=== PATIENT | male | born 1945 | race Caucasian/White ===

== ENCOUNTER → 2017-11-09 | Outpatient (CLI) | payer MEDICARE ==
[~2017-11-09] MED LIST: GADOBUTROL 10 MMOL/10 ML VIAL ONE
== END | disposition home or self-care (01) ==
LOC: CFH 12:59
PROVIDERS: ATTEND Nurse Practitioner Primary Care
DX: E03.9 Hypothyroidism, unspecified (principal); R97.20 Elevated prostate specific antigen [PSA]; R53.83 Other fatigue; M54.5 Low back pain; M25.511 Pain in right shoulder; R00.1 Bradycardia, unspecified; R07.89 Other chest pain; E55.9 Vitamin D deficiency, unspecified
CPT/HCPCS: 72197; 76536; A9585

== ENCOUNTER 2017-11-27 13:43 | Inpatient (IN) | payer MEDICARE ==
[~2017-11-27] VITALS: Ht 172.7 cm; Wt 73.8 kg
[2017-11-27] MEDS ORDERED: ASPIRIN 81 MG TABLET CHEW PO ONE (14:30)
[2017-11-27 14:42] LABS: BASOPHILS % (AUTO) 0 % (0-1); EOSINOPHILS % (AUTO) 2 % (1-7); LYMPHOCYTES # (AUTO) 0.99 x10^3/uL (1-3.4); LYMPHOCYTES % (AUTO) 18 % (22-44); MD NO; MEAN CORPUSCULAR HEMOGLOBIN 31.1 pg (27.5-34.5); MEAN CORPUSCULAR VOLUME 91.6 fL (81-97); MEAN PLATELET VOLUME 9.7 fL (7.4-10.4); MONOCYTES # (AUTO) 0.41 x10^3/uL (0.2-0.8); MONOCYTES % (AUTO) 8 % (2-9); NEUTROPHILS # (AUTO) 3.92 x10^3/uL (1.8-6.8); NEUTROPHILS % (AUTO) 72 % (42-75); PLATELET COUNT 193 x10^3/uL (130-400); RED BLOOD COUNT 4.95 x10^6/uL (4.38-5.82); RED CELL DISTRIBUTION WIDTH 12.8 % (9.4-14.8)
[2017-11-27 14:56] LABS: ALBUMIN 4.1 g/dL (3.4-5.0); ANION GAP 9 mmol/L (5-15); CALCIUM 9.1 mg/dL (8.5-10.1); CHLORIDE 103 mmol/L (98-107); CREATININE 1.13 mg/dL (0.7-1.3)
[2017-11-27 15:00] LABS: TROPONIN I < 0.015 ng/mL (0.000-0.045)
[2017-11-27] MEDS ORDERED: LEVO50TA PO (15:22)
[2017-11-27] MEDS ORDERED: ZOLPIDEM 5MG TABLET PO PRN (16:00)
[2017-11-27] MEDS ORDERED: BISACODYL 10 MG SUPP PR PRN (16:00)
[2017-11-27] MEDS ORDERED: ACETAMINOPHEN 325 MG TABLET PO PRN (16:00)
[2017-11-27] MEDS ORDERED: ONDANSETRON 2MG/ML, 2ML IVP PRN (16:00)
[2017-11-27 16:41] LABS: CHOL/HDL RATIO 4.5; LDL/HDL RATIO 2.8 (0.5-3.0)
[2017-11-27 20:00] VITALS: BP 124/70
[2017-11-27] MEDS: SODIUM CHLORIDE FLUSH 10ML SYR IVF SCH (21:00)
[2017-11-27] MEDS: ATORVASTATIN 40 MG TABLET PO SCH (21:00)
[2017-11-27] MEDS ORDERED: NITROGLYCERIN 0.4 MG BOTTLE (25 TABS) SL PRN (22:30)
[2017-11-27] MEDS ORDERED: NITROGLYCERIN 0.4 MG/SPRAY SL PRN (22:30)
[2017-11-27 22:34] VITALS: BP 118/70
[2017-11-27 22:36] VITALS: BP 111/68
[2017-11-27 22:48] LABS: TROPONIN I < 0.015 ng/mL (0.000-0.045)
[2017-11-27] MEDS ORDERED: ASPIRIN 81 MG TABLET EC PO ONE (23:15)
[2017-11-28 02:30] VITALS: BP 103/66
[2017-11-28] MEDS: LEVOTHYROXINE 50 MCG TABLET PO SCH (05:18)
[2017-11-28] MEDS: ASPIRIN 81 MG TABLET EC PO SCH (05:18)
[2017-11-28 05:23] LABS: TROPONIN I < 0.015 ng/mL (0.000-0.045)
[2017-11-28 07:53] VITALS: BP 103/67
[2017-11-28] MEDS: SODIUM CHLORIDE FLUSH 10ML SYR IVF SCH ×3 (07:56→20:56)
[2017-11-28] MEDS ORDERED: DIPHENHYDRAMINE 50 MG/ML, 1ML ONE (14:10)
[2017-11-28] MEDS ORDERED: VERAPAMIL 2.5 MG/ML, 2ML ONE (14:10)
[2017-11-28] MEDS ORDERED: MIDAZOLAM 1 MG/ML, 2ML ONE (14:10)
[2017-11-28] MEDS ORDERED: FENTANYL PF 100 MCG/2ML ONE (14:10)
[2017-11-28] MEDS ORDERED: HEPARIN 1,000 UNITS/ML, 10ML ONE (14:10)
[2017-11-28 14:15] VITALS: BP 99/62
[2017-11-28] MEDS ORDERED: BIVALIRUDIN 250 MG ONE (14:57)
[2017-11-28] MEDS ORDERED: CHLORHEXIDINE 15 ML BOTTLE MM PRN (16:00)
[2017-11-28] MEDS ORDERED: INSULIN LISPRO 100 UNITS/ML, PEN SQ-INSULIN SCH (16:00)
[2017-11-28 16:32] LABS: BASOPHILS # (AUTO) 0.01 x10^3/uL (0-0.1); BASOPHILS % (AUTO) 0 % (0-1); EOSINOPHILS % (AUTO) 2 % (1-7); LYMPHOCYTES # (AUTO) 0.88 x10^3/uL (1-3.4); LYMPHOCYTES % (AUTO) 20 % (22-44); MD NO; MEAN CORPUSCULAR HEMOGLOBIN 31.6 pg (27.5-34.5); MEAN CORPUSCULAR HGB CONC 34.2 g/dL (33.2-36.2); MEAN CORPUSCULAR VOLUME 92.5 fL (81-97); MEAN PLATELET VOLUME 10.1 fL (7.4-10.4); MONOCYTES # (AUTO) 0.27 x10^3/uL (0.2-0.8); MONOCYTES % (AUTO) 6 % (2-9); NEUTROPHILS # (AUTO) 3.13 x10^3/uL (1.8-6.8); NEUTROPHILS % (AUTO) 71 % (42-75); PLATELET COUNT 169 x10^3/uL (130-400); RED CELL DISTRIBUTION WIDTH 12.7 % (9.4-14.8)
[2017-11-28 16:47] LABS: CHLORIDE 107 mmol/L (98-107)
[2017-11-28 16:55] LABS: ALANINE AMINOTRANSFERASE 14 U/L (12-78); ALBUMIN 3.6 g/dL (3.4-5.0); ALKALINE PHOSPHATASE 32 U/L (45-117); ANION GAP 14 mmol/L (5-15); BILIRUBIN,TOTAL 1.3 mg/dL (0.2-1.0); CREATININE 0.81 mg/dL (0.7-1.3); TOTAL PROTEIN 6.8 g/dL (6.4-8.2)
[2017-11-28 17:07] LABS: INTERNATIONAL NORMALIZED RATIO 1.43 (0.93-1.1); PROTHROMBIN TIME 14.8 Seconds (9.6-11.5)
[2017-11-28 20:12] VITALS: BP 99/61
[2017-11-28 20:51] LABS: HEMOGLOBIN A1C 5.5 % (4.2-6.3)
[2017-11-28] MEDS: MUPIROCIN OINT 2%, 22GM TP SCH (20:56)
[2017-11-28] MEDS: ATORVASTATIN 40 MG TABLET PO SCH (20:57)
[2017-11-29 02:50] VITALS: BP 112/67
[2017-11-29 04:44] LABS: MICROSCOPIC NOT IND
[2017-11-29] MEDS ORDERED: METOPROLOL TARTRATE 25 MG TABLET PO ONE ×2 (05:00→08:30)
[2017-11-29 05:07] VITALS: BP 112/64
[2017-11-29] MEDS: ASPIRIN 81 MG TABLET EC PO SCH ×2 (05:37→08:15)
[2017-11-29] MEDS: LEVOTHYROXINE 50 MCG TABLET PO SCH ×2 (05:39→08:15)
[2017-11-29 06:45] VITALS: BP 110/63
[2017-11-29 06:46] VITALS: BP 106/63
[2017-11-29] MEDS ORDERED: EPINEPHRINE 2 MG in SODIUM CHLORIDE 0.9% 248 ML IV SCH (07:30)
[2017-11-29] MEDS ORDERED: DEXMEDETOMIDINE 200 MCG in SODIUM CHLORIDE 0.9% 48 ML IV SCH (07:30)
[2017-11-29] MEDS ORDERED: CEFUROXIME 1.5 GM in SODIUM CHLORIDE 0.9% 50 ML IVPB PRN (07:30)
[2017-11-29] MEDS ORDERED: POTASSIUM CHLORIDE 80 MEQ, SODIUM BICARBONATE 8.4% 10 MEQ, MAGNESIUM SULFATE 0.5 GM, LI... IV PRN (07:30)
[2017-11-29] MEDS ORDERED: VANCOMYCIN PER PHARMACY MC PRN (07:30)
[2017-11-29] MEDS ORDERED: VANCOMYCIN 1,000 MG in SODIUM CHLORIDE 0.9% 100 ML IV PRN (07:30)
[2017-11-29] MEDS ORDERED: MANNITOL PMX 20% 500 ML IVPB PRN (07:30)
[2017-11-29] MEDS ORDERED: REGULAR INSULIN 62.5 UNITS in SODIUM CHLORIDE 0.9% 249.375 ML IV PRN (07:30)
[2017-11-29] MEDS ORDERED: PHENYLEPHRINE 10 MG in SODIUM CHLORIDE 0.9% 249 ML IV PRN (07:30)
[2017-11-29] MEDS: SODIUM CHLORIDE FLUSH 10ML SYR IVF SCH ×6 (08:06→19:56)
[2017-11-29] MEDS: MUPIROCIN OINT 2%, 22GM TP SCH ×2 (08:06→19:56)
[2017-11-29] MEDS ORDERED: INSULIN LISPRO 100 UNITS/ML, PEN SQ-INSULIN SCH (08:30)
[2017-11-29] MEDS ORDERED: CHLORHEXIDINE 15 ML BOTTLE MM PRN (08:30)
[2017-11-29 08:36] LABS: INTERNATIONAL NORMALIZED RATIO 1.13 (0.93-1.1); PROTHROMBIN TIME 11.7 Seconds (9.6-11.5)
[2017-11-29 08:40] LABS: ALANINE AMINOTRANSFERASE 17 U/L (12-78); ALBUMIN 3.7 g/dL (3.4-5.0); ANION GAP 8 mmol/L (5-15); CALCIUM 8.5 mg/dL (8.5-10.1); CHLORIDE 106 mmol/L (98-107); CREATININE 0.84 mg/dL (0.7-1.3)
[2017-11-29 08:43] LABS: ALKALINE PHOSPHATASE 33 U/L (45-117); BILIRUBIN,TOTAL 1.4 mg/dL (0.2-1.0); TOTAL PROTEIN 6.8 g/dL (6.4-8.2)
[2017-11-29] MEDS ORDERED: ALBUMIN HUMAN 5% 500 ML IV PRN (10:30)
[2017-11-29 13:55] VITALS: BP 106/66
[2017-11-29] MEDS: ATORVASTATIN 40 MG TABLET PO SCH (19:59)
[2017-11-29 20:09] VITALS: BP 117/72
[2017-11-30 02:59] VITALS: BP 113/70
[2017-11-30] MEDS: LEVOTHYROXINE 50 MCG TABLET PO SCH (04:00)
[2017-11-30] MEDS: ASPIRIN 81 MG TABLET EC PO SCH (04:16)
[2017-11-30] MEDS: METOPROLOL TARTRATE 25 MG TABLET PO ONE ×2 (04:18→04:51)
[2017-11-30] MEDS ORDERED: FENTANYL PF 250 MCG/5ML ONE ×4 (06:42)
[2017-11-30] MEDS ORDERED: MIDAZOLAM 10MG/2 ML ONE (06:42)
[2017-11-30] MEDS ORDERED: CALCIUM CHLORIDE 10%, 10ML SYR ONE (06:46)
[2017-11-30] MEDS ORDERED: HEPARIN 1,000 UNITS/ML, 10ML ONE (07:03)
[2017-11-30] MEDS ORDERED: PAPAVERINE 30 MG/ML, 2ML ONE (07:03)
[2017-11-30] MEDS ORDERED: REGULAR INSULIN 62.5 UNITS in SODIUM CHLORIDE 0.9% 249.375 ML IV PRN ×2 (07:30→10:51)
[2017-11-30] MEDS: DOCUSATE 100 MG CAPSULE PO SCH ×2 (09:00→22:59)
[2017-11-30] MEDS ORDERED: AMINOCAPROIC ACID 250 MG/ML, 20ML ONE ×2 (09:38)
[2017-11-30] MEDS ORDERED: ROCURONIUM 10MG/ML,5ML ONE ×2 (09:38)
[2017-11-30] MEDS ORDERED: PROPOFOL 10 MG/ML, 20ML ONE (09:38)
[2017-11-30] MEDS ORDERED: PROTAMINE SULFATE 10 MG/ML, 25ML ONE ×2 (09:38)
[2017-11-30] MEDS ORDERED: HEPARIN 1,000 UNITS/ML, 30ML ONE (10:12)
[2017-11-30] MEDS ORDERED: LIDOCAINE 2% 100MG/5ML SYRINGE ONE (10:12)
[2017-11-30] MEDS ORDERED: SODIUM BICARBONATE 1 MEQ/ML, 50ML VIAL ONE (10:12)
[2017-11-30] MEDS ORDERED: ALBUMIN HUMAN 25% 50 ML ONE (10:12)
[2017-11-30] MEDS ORDERED: VASOPRESSIN 50 UNIT in SODIUM CHLORIDE 0.9% 250 ML IV PRN (10:51)
[2017-11-30] MEDS ORDERED: PHENYLEPHRINE 10 MG in SODIUM CHLORIDE 0.9% 249 ML IV PRN (10:51)
[2017-11-30] MEDS ORDERED: NITROGLYCERIN/D5W PMX 250 ML IV PRN (10:51)
[2017-11-30] MEDS ORDERED: DEXMEDETOMIDINE 200 MCG in SODIUM CHLORIDE 0.9% 48 ML IV PRN (10:51)
[2017-11-30] MEDS ORDERED: DOBUTAMINE 250 MG in SODIUM CHLORIDE 0.9% 230 ML IV PRN (10:51)
[2017-11-30] MEDS ORDERED: SODIUM BICARB 8.4%, 50ML SYRINGE IV PRN (11:00)
[2017-11-30] MEDS ORDERED: DEXTROSE 50%, 50ML SYRINGE IVPush PRN (11:00)
[2017-11-30] MEDS ORDERED: INSULIN REGULAR 100 UNITS/ML, 3ML VIAL IVPush PRN (11:00)
[2017-11-30] MEDS ORDERED: ONDANSETRON 2MG/ML, 2ML IVPush PRN (11:00)
[2017-11-30] MEDS ORDERED: GLUCAGON 1 MG IM PRN (11:00)
[2017-11-30] MEDS: KSCALE TO 4.5 IV SCH ×3 (11:00→23:00)
[2017-11-30] MEDS ORDERED: INSULIN LISPRO 100 UNITS/ML, PEN SQ-INSULIN SCH (11:00)
[2017-11-30] MEDS ORDERED: BISACODYL 10 MG SUPP PR PRN (11:00)
[2017-11-30] MEDS ORDERED: ACETAMINOPHEN 650 MG SUPP PR PRN (11:00)
[2017-11-30] MEDS ORDERED: HYDROcodone/APAP 5/325 TABLET PO PRN (11:00)
[2017-11-30] MEDS ORDERED: PROCHLORPERAZINE 5 MG/ML, 2ML IVPush PRN (11:00)
[2017-11-30] MEDS ORDERED: DEXTROSE 4 GM TAB.CHEW PO PRN (11:00)
[2017-11-30] MEDS ORDERED: BISACODYL 5 MG EC TABLET PO PRN (11:00)
[2017-11-30] MEDS ORDERED: HYDROcodone/APAP 10/325 MG TABLET PO PRN (11:00)
[2017-11-30] MEDS ORDERED: ACETAMINOPHEN 325 MG TABLET PO PRN (11:00)
[2017-11-30] MEDS ORDERED: MIDAZOLAM 1 MG/ML, 5ML IVPush PRN (11:00)
[2017-11-30 11:47] LABS: GLUCOSE BY BLOOD GAS ANALYZER 97 mg/dL (70-110); HEMOGLOBIN BY BLOOD GAS ANALYZ 13.5 g/dL (14.0-18.0)
[2017-11-30 11:48] LABS: INTERNATIONAL NORMALIZED RATIO 1.6 (0.93-1.1); PROTHROMBIN TIME 16.5 Seconds (9.6-11.5)
[2017-11-30] MEDS ORDERED: MAGNESIUM SULFATE 1 GM in SODIUM CHLORIDE 0.9% 50 ML IVPB SCH (12:00)
[2017-11-30] MEDS ORDERED: SODIUM CHLORIDE 0.9% 1,000 ML IV PRN (12:00)
[2017-11-30] MEDS ORDERED: ALBUMIN HUMAN 5% 500 ML IV ONE (12:00)
[2017-11-30] MEDS ORDERED: POTASSIUM CHLORIDE 30 MEQ in SODIUM CHLORIDE 0.9% 100 ML IV ONE (12:30)
[2017-11-30] MEDS: MORPHINE SULFATE 4 MG/ML, 1ML IVPush PRN ×2 (12:39→15:38)
[2017-11-30] MEDS: LACTATED RINGERS 1,000 ML IV PRN ×4 (13:53→15:19)
[2017-11-30] MEDS ORDERED: CALCIUM CHLORIDE 13.6 MEQ in SODIUM CHLORIDE 0.9% 100 ML IV ONE (18:00)
[2017-11-30] MEDS ORDERED: LACTATED RINGERS 500 ML IVBOLUS ONE ×2 (18:00)
[2017-11-30] MEDS ORDERED: POTASSIUM CHLORIDE PMX 100 ML IV ONE (18:00)
[2017-11-30] MEDS: EPINEPHRINE 2 MG in SODIUM CHLORIDE 0.9% 248 ML IV PRN (18:28)
[2017-11-30] MEDS: OXYcodone IR 5MG TABLET PO PRN (18:47)
[2017-11-30] MEDS ORDERED: LACTATED RINGERS 500 ML IVBOLUS PRN ×2 (19:30)
[2017-11-30] MEDS ORDERED: CEFUROXIME 1.5 GM in SODIUM CHLORIDE 0.9% 50 ML IVPB SCH (19:30)
[2017-11-30] MEDS ORDERED: VANCOMYCIN 1,100 MG in SODIUM CHLORIDE 0.9% 250 ML IVPB SCH (20:00)
[2017-11-30] MEDS ORDERED: SODIUM CHLORIDE FLUSH 10ML SYR IVF SCH (21:00)
[2017-11-30] MEDS ORDERED: MUPIROCIN OINT 2%, 22GM NAS SCH (21:00)
[2017-11-30] MEDS: ATORVASTATIN 40 MG TABLET PO SCH (22:58)
[2017-12-01] MEDS ORDERED: POTASSIUM CHLORIDE PMX 100 ML IV ONE (00:30)
[2017-12-01] MEDS: MORPHINE SULFATE 4 MG/ML, 1ML IVPush PRN (02:41)
[2017-12-01] MEDS: EPINEPHRINE 2 MG in SODIUM CHLORIDE 0.9% 248 ML IV PRN (03:22)
[2017-12-01] MEDS: OXYcodone IR 5MG TABLET PO PRN (03:39)
[2017-12-01 03:50] LABS: MEAN CORPUSCULAR HEMOGLOBIN 31.2 pg (27.5-34.5); MEAN CORPUSCULAR VOLUME 91.6 fL (81-97); MEAN PLATELET VOLUME 11.2 fL (7.4-10.4); PLATELET COUNT 116 x10^3/uL (130-400); RED BLOOD COUNT 3.69 x10^6/uL (4.38-5.82); RED CELL DISTRIBUTION WIDTH 12.9 % (9.4-14.8)
[2017-12-01 04:00] VITALS: BP 85/63
[2017-12-01 04:01] LABS: ALBUMIN 3.2 g/dL (3.4-5.0); ANION GAP 17 mmol/L (5-15); BASOPHILS % (AUTO) 0 % (0-1); CALCIUM 7.7 mg/dL (8.5-10.1); CHLORIDE 118 mmol/L (98-107); CREATININE 1.47 mg/dL (0.7-1.3); EOSINOPHILS % (AUTO) 0 % (1-7); LYMPHOCYTES % (AUTO) 3 % (22-44); MD SCAN; MONOCYTES # (AUTO) 0.73 x10^3/uL (0.2-0.8); MONOCYTES % (AUTO) 5 % (2-9); NEUTROPHILS # (AUTO) 13.63 x10^3/uL (1.8-6.8); NEUTROPHILS % (AUTO) 92 % (42-75)
[2017-12-01] MEDS ORDERED: EPINEPHRINE SYRINGE 0.1 MG/ML, 10ML ONE ×2 (06:00→06:49)
[2017-12-01 06:09] VITALS: BP 24/2
[2017-12-01 06:14] VITALS: BP 38/2
[2017-12-01 06:15] VITALS: BP 32/2
[2017-12-01] MEDS ORDERED: CALCIUM CHLORIDE 10%, 10ML SYR ONE (06:49)
[2017-12-01] MEDS ORDERED: CODE BLUE RESPONSE XX ONE (06:49)
[2017-12-01] MEDS ORDERED: SODIUM BICARB 8.4%, 50ML SYRINGE ONE (06:49)
[2017-12-01] MEDS ORDERED: INSULIN LISPRO 100 UNITS/ML, PEN SQ-INSULIN PRN (07:00)
[2017-12-01] MEDS ORDERED: METOPROLOL TARTRATE 25 MG TABLET PO/NG SCH (09:00)
[2017-12-01] MEDS ORDERED: ASPIRIN 81 MG TABLET EC PO SCH (09:00)
[2017-12-01] MEDS ORDERED: CHLORHEXIDINE 15 ML BOTTLE MM SCH (12:00)
[2017-12-02] MEDS ORDERED: ENOXAPARIN 40 MG/0.4 ML SQ SCH (09:00)
[2017-12-02] MEDS ORDERED: POTASSIUM CHLORIDE 10 MEQ TABLET.ER PO SCH (09:00)
[2017-12-02] MEDS ORDERED: METOPROLOL TARTRATE 25 MG TABLET PO/NG SCH (09:00)
[2017-12-02] MEDS ORDERED: FUROSEMIDE 20 MG/2 ML IV SCH (09:00)
[2017-12-03] MEDS ORDERED: CLOPIDOGREL 75 MG TABLET PO SCH (09:00)
== END 2017-12-01 14:50 | disposition expired | DRG 233 ==
LOC: ED 15:52 → EDIP 15:53 → ED 17:15 → 5SO 18:33 → CSU 11-30 09:11 → CCU 12-01 09:31
PROVIDERS: ADMIT Internal Medicine Cardiovascular Disease; ATTEND Internal Medicine Cardiovascular Disease
PROC: 4A023N7 Measurement of Cardiac Sampling and Pressure, Left Heart, Percutaneous Approach (ICD-10-PCS; 2017-11-28)
PROC: B2111ZZ Fluoroscopy of Multiple Coronary Arteries using Low Osmolar Contrast (ICD-10-PCS; 2017-11-28)
PROC: B2151ZZ Fluoroscopy of Left Heart using Low Osmolar Contrast (ICD-10-PCS; 2017-11-28)
PROC: 021109W Bypass Coronary Artery, Two Arteries from Aorta with Autologous Venous Tissue, Open Approach (ICD-10-PCS; 2017-11-30)
PROC: 06BP4ZZ Excision of Right Saphenous Vein, Percutaneous Endoscopic Approach (ICD-10-PCS; 2017-11-30)
PROC: 5A1221Z Performance of Cardiac Output, Continuous (ICD-10-PCS; 2017-11-30)
PROC: 02100Z9 Bypass Coronary Artery, One Artery from Left Internal Mammary, Open Approach (ICD-10-PCS; principal; 2017-11-30 07:30)
PROC: 0W9D0ZZ Drainage of Pericardial Cavity, Open Approach (ICD-10-PCS; 2017-12-01)
PROC: 30233N1 Transfusion of Nonautologous Red Blood Cells into Peripheral Vein, Percutaneous Approach (ICD-10-PCS; 2017-12-01)
DX: I25.110 Atherosclerotic heart disease of native coronary artery with unstable angina pectoris (principal); I50.31 Acute diastolic (congestive) heart failure; I23.3 Rupture of cardiac wall without hemopericardium as current complication following acute myocardial infarction; I25.82 Chronic total occlusion of coronary artery; E03.9 Hypothyroidism, unspecified; E78.5 Hyperlipidemia, unspecified; I77.1 Stricture of artery; Z79.82 Long term (current) use of aspirin; Z82.49 Family history of ischemic heart disease and other diseases of the circulatory system; Z87.891 Personal history of nicotine dependence; Z90.49 Acquired absence of other specified parts of digestive tract; Y92.239 Unspecified place in hospital as the place of occurrence of the external cause
CPT/HCPCS: 36415; 36600; 71045; 71046; 80048; 80053; 80061; 81003; 82040; 82330; 82800; 82803; 82810; 82947; 82962; 83036; 83735; 84132; 84295; 84484; 85014; 85018; 85025; 85049; 85347; 85610; 85730; 86850; 86900; 86923; 87081; 92920; 92950; 93005; 93312; 93321; 93325; 93458; 93880; 94002; 99156; 99157; 99285; C1894; J0583; J0697; J1644; J1815; J2250; J2704; J2720; J3010; J3370; J3475; J3480; J3490; J7120; P9045; P9047; 92928; C1751; C1760; C1769; C1887; J0171; J1200; J1250; J2370; J2440; J7030; J7050; P9016; Q9967